=== PATIENT | male | born 1995 | race Caucasian/White ===

== ENCOUNTER 2025-01-14 10:41 | Outpatient (CLI) | payer OTHER, SELFPAY | END 2025-01-14 10:42 | disposition home or self-care (01) | PROVIDERS: PCP Family Medicine; Visit Provider Family Medicine | DX: C62.90 Malignant neoplasm of unspecified testis, unspecified whether descended or undescended (principal) | CPT/HCPCS: 82105; 84702 ==

== ENCOUNTER 2025-01-23 07:36 | Outpatient (CLI) | payer OTHER, SELFPAY ==
--- NOTE | 2025-01-23 08:00 | CRLHL7_ITS ---
For Patients: As a result of the Century Cures Act, medical imaging exams and procedure reports are released immediately into your electronic medical record. You may view this report before your referring provider. If you have questions, please contact your health care provider. INDICATION: Staging for testicular cancer. TECHNIQUE: CT chest, abdomen, and pelvis acquired with 106 mL Isovue 370 IV contrast. COMPARISON: None available at this time. FINDINGS: CHEST: Lungs and pleura: No focal consolidation. Heart and vessels: No cardiomegaly, no pericardial effusion. Thyroid and lower neck: No suspicious thyroid nodule. Mediastinum/janet: No lymphadenopathy. Chest wall: No axillary lymphadenopathy. ABDOMEN/PELVIS: Liver: No suspicious focal hepatic lesion. Gallbladder and bile ducts: Unremarkable. Pancreas: Unremarkable. Spleen: Unremarkable. Adrenal glands: Unremarkable. Kidneys: Postsurgical changes of left nephrectomy. Unremarkable enhancement pattern of the right kidney, no right hydronephrosis. Retroperitoneum: No lymphadenopathy. Bowel and mesentery: Bowel is not obstructed. No significant ascites. Normal appendix. Bladder: Unremarkable for degree of distention. Reproductive organs: No prostatomegaly. Testicles are seen bilaterally, testicular mass is not well delineated on CT. Pelvic lymph nodes: No lymphadenopathy. Vessels: Unremarkable. Abdominal wall: No acute abdominal wall abnormality. Bones: Multilevel degenerative changes of the spine. No suspicious/aggressive focal osseous lesion. IMPRESSION: 1. Postsurgical changes of left nephrectomy. 2. Testicles are seen bilaterally. A discrete testicular mass is not well delineated on CT. 3. No evidence of metastases within the chest, abdomen, or pelvis. Please note that all CT scans at this facility use dose modulation, iterative reconstruction, and/or weight-based dosing when appropriate to reduce radiation dose to as low as reasonably achievable. Dictated by Mitch Drake MD @ 01/23/2025 4:29:48 PM (Electronically Signed)
[2025-01-23 08:19] LABS: Creatinine* 1.1 mg/dL (0.5-1.5); Estimated Glomerular Filt Rate 94 ml/min
== END 2025-01-23 07:37 | disposition home or self-care (01) ==
PROVIDERS: PCP Family Medicine; Visit Provider Family Medicine
DX: N50.89 Other specified disorders of the male genital organs (principal)
CPT/HCPCS: 36415; 71260; 74177; 82565; Q9967

== ENCOUNTER 2025-02-21 09:13 | Outpatient (CLI) | payer OTHER, SELFPAY | END 2025-02-21 09:14 | disposition home or self-care (01) | PROVIDERS: PCP Family Medicine; Visit Provider Family Medicine | DX: Z01.818 Encounter for other preprocedural examination (principal) | CPT/HCPCS: 80048; 85025 ==